=== PATIENT | male | born 1985 | race Caucasian/White ===

== ENCOUNTER 2018-07-29 16:57 | Emergency (ER) | payer OTHER ==
[~2018-07-29] VITALS: Ht 170.2 cm; Wt 63.0 kg
[2018-07-29 17:03] VITALS: Ht 170.2 cm; Wt 63.0 kg
[2018-07-29 17:19] VITALS: BP 117/58; PULSE 66; RESP 18
--- NOTE | 2018-07-29 23:47 | ERD ---
ER Documentation Chief Complaint Chief Complaint Medical clearance for booking states withdrawing from xanax HPI 33-year-old man brought in by EMS with [employer] officers here for medical clearance. 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 There was no seizure activity, patient denies recent seizures, no fevers or chills, no cough, no vomiting or diarrhea. ROS All systems reviewed and are negative except as per history of present illness. PMhx/Soc Drug abuse Medical and Surgical Hx: pt denies Surgical Hx History of Surgery: No Anesthesia Reaction: No Hx Neurological Disorder: No Hx Respiratory Disorders: No Hx Cardiac Disorders: No Hx Psychiatric Problems: No Hx Miscellaneous Medical Probl: Yes (drug abuse) Hx Alcohol Use: No Hx Substance Use: No Hx Tobacco Use: No Smoking Status: Never smoker FmHx Family History: No diabetes Physical Exam Vitals Vital Signs Date Temp Pulse Resp B/P (MAP) Pulse Ox O2 O2 Flow FiO2 Time Delivery Rate 07/29/18 98.6 66 18 117/58 99 17:19 (77) 07/29/18 98.6 95 18 117/58 99 17:03 (77) Physical Exam Const: No acute distress, yawning, lethargic, appears opioid intoxicated Head: Atraumatic Eyes: Normal Conjunctiva ENT: Normal External Ears, Nose and Mouth. Neck: Full range of motion. No meningismus. Resp: Clear to auscultation bilaterally Cardio: Regular rate and rhythm, no murmurs Abd: Soft, non tender, non distended. Skin: No petechiae or rashes Back: No midline or flank tenderness Ext: No cyanosis, or edema Neur: Awake and alert x3, no focal deficits or facial asymmetry, pupils equal round reactive to light Psych: Normal Mood and Affect Procedures/MDM Patient appears to be intoxicated with opioids or benzodiazepines already, he has no signs of withdrawal or impending seizure activity. Patient is medically cleared and okay to book. Departure Diagnosis: Primary Impression: Encounter for medical clearance for patient hold Additional Impression: Drug abuse Condition: Stable Patient Instructions: Opiate Abuse, [facility] Clearance CLARI MCGHEE MD Jul 29, 2018 23:47
== END 2018-07-29 17:43 ==
LOC: E/R 16:57
DX: F11.10 Opioid abuse, uncomplicated (principal); F13.10 Sedative, hypnotic or anxiolytic abuse, uncomplicated
CPT/HCPCS: 99283